=== PATIENT | female | born 1990 | race Caucasian/White ===

== ENCOUNTER 2018-02-26 09:47 | Emergency (ER) | payer BC ==
[~2018-02-26] VITALS: Ht 160 cm; Wt 59.1 kg
[2018-02-26 09:51] VITALS: BP 107/63; TEMP 98
[2018-02-26] MEDS ORDERED: UNISOM25 MG PO (10:18)
[2018-02-26] MEDS ORDERED: ENDOMETRIN100 MG VG (10:18)
[2018-02-26] MEDS ORDERED: REGLAN 10MG10 MG/TAB PO (10:18)
[2018-02-26] MEDS ORDERED: FOLIVANE-OB1 CAP PO (10:19)
[2018-02-26] MEDS ORDERED: VITAMIN B650 MG (10:19)
[2018-02-26 10:36] LABS: COLLECTION METHOD CATHETER
[2018-02-26] MEDS ORDERED: MACROBID 1100 MG/CAP PO (10:40)
[2018-02-26 10:41] LABS: MUCOUS Present /lpf; PH 7 (5-8); SQUAMOUS EPITHELIAL None Seen /hpf; URINE APPEARANCE Clear; URINE BACTERIA None Seen /hpf; URINE BILIRUBIN Negative (NEGATIVE); URINE BLOOD Negative (NEGATIVE); URINE COLOR Straw; URINE GLUCOSE Negative (NEGATIVE); URINE KETONE Negative (NEGATIVE); URINE LEUKOCYTE ESTERASE Negative (NEGATIVE); URINE NITRATE Negative (NEGATIVE); URINE PROTEIN(semi-quant) Negative (NEGATIVE); URINE RBC 0-2 /hpf; URINE UROBILINOGEN Negative (NEGATIVE)
[2018-02-26 11:13] VITALS: PULSE 80
== END 2018-02-26 11:13 | disposition home or self-care (01) ==
LOC: COL.ER 09:47
PROVIDERS: Family Medicine
DX: O99.89 Other specified diseases and conditions complicating pregnancy, childbirth and the puerperium (principal); R33.9 Retention of urine, unspecified; Z3A.13 13 weeks gestation of pregnancy